=== PATIENT | male | born 1940 | race Caucasian/White ===

== ENCOUNTER 2017-10-27 10:36 | Day surgery (SDC) | payer MEDICARE ==
[~2017-10-27] VITALS: Ht 177.8 cm; Wt 104.8 kg
[~2017-10-27 10:36] MED LIST: AMLODIPINE5 MG PO; ASPI325T6 PO; CARDI-OMEGA1000 MG; CARDI-OMEGA1000 MG PO; COUMADIN 2MG2 MG/TAB PO; CRESTOR 10MG10 MG PO; DULCOLAX S10 MG/SUPP RC; FERROUS SU325 MG/TAB PO; FOLIC ACID 40400 MCG PO; GLUCOPHAGE1000 MG PO; HYZAAR 25 MG-101 TAB PO; JANUVIA 100MG100 MG PO; METFORMIN500 MG PO; NORCO 325 MG-7.1 TAB PO; NORVASC 5MG5 MG/TAB PO; ROXICODONE 55 MG/TAB PO; SLO-NIACIN250 MG PO; TYLENOL EXTRA500 M1 PO; VITAMIN C BUFF500 MG PO; VITAMIN C500 MG PO; [UNRECOGNIZED DRUG - OTHER] PO
[2017-10-27] MEDS ORDERED: JANUVIA 100MG100 MG PO (11:12)
[2017-10-27] MEDS ORDERED: ASPIRIN 81M81 MG/TA2 PO (11:12)
[2017-10-27] MEDS ORDERED: MULTI VITAMINS1 TAB PO (11:13)
[2017-10-27] MEDS ORDERED: GLUCOPHAGE500 MG/TAB PO (11:13)
[2017-10-27] MEDS ORDERED: NORVASC 5MG5 MG/TAB PO (11:14)
[2017-10-27] MEDS ORDERED: FISH OIL 1000MG1 CAP PO (11:15)
[2017-10-27] MEDS ORDERED: CRESTOR 10MG10 MG PO (11:15)
[2017-10-27] MEDS ORDERED: NORCO 325 MG-101 TAB PO (11:15)
[2017-10-27] MEDS ORDERED: MIRALAX PA17 GM/Dose PO (11:16)
[2017-10-27] MEDS ORDERED: HYZAAR 25 MG-101 TAB PO (11:17)
[2017-10-27 11:33] VITALS: BP 153/76; PULSE 64; TEMP 99
[2017-10-27 13:14] VITALS: BP 117/75; PULSE 72; TEMP 98.1
[2017-10-27] MEDS ORDERED: COLACE 100100 MG/CAP PO (13:22)
[2017-10-27] MEDS ORDERED: NORCO 325 MG-51 TAB PO (13:23)
[2017-10-27] MEDS ORDERED: MOTRIN 600600 MG/TAB PO (13:23)
[2017-10-27 13:30] VITALS: BP 132/71; PULSE 73
[2017-10-27 13:45] VITALS: BP 133/81; PULSE 66
== END 2017-10-27 14:05 | disposition home or self-care (01) ==
LOC: SDCO 10:36
DX: C25.0 Malignant neoplasm of head of pancreas (principal); Z79.82 Long term (current) use of aspirin; E11.9 Type 2 diabetes mellitus without complications; Z79.84 Long term (current) use of oral hypoglycemic drugs; I10 Essential (primary) hypertension; E78.00 Pure hypercholesterolemia, unspecified; Z68.32 Body mass index [BMI] 32.0-32.9, adult; Z96.653 Presence of artificial knee joint, bilateral; Z85.820 Personal history of malignant melanoma of skin; Z82.49 Family history of ischemic heart disease and other diseases of the circulatory system; Z87.891 Personal history of nicotine dependence
CPT/HCPCS: C1788; J0690; J1644; J2250; J2405; J2704; J3010; J7030